=== PATIENT | female | born 1980 | race Caucasian/White ===

== ENCOUNTER 2021-03-11 16:39 | Emergency (ER) | payer OTHER ==
[~2021-03-11] VITALS: Ht 167.6 cm; Wt 72.7 kg
[2021-03-11] MEDS ORDERED: CLEOCIN HCL150 M1 PO (19:25)
[2021-03-11] MEDS ORDERED: TRAMADOL 50 MG TAB PO (19:25)
[2021-03-11 20:06] VITALS: BP 128/86
== END 2021-03-11 20:08 | disposition home or self-care (01) ==
LOC: ED 16:39
DX: S61.411A Laceration without foreign body of right hand, initial encounter (principal); S51.811A Laceration without foreign body of right forearm, initial encounter; Y00.XXXA Assault by blunt object, initial encounter
CPT/HCPCS: 90715